=== PATIENT | male | born 1975 | race Caucasian/White ===

== ENCOUNTER 2017-04-09 22:32 | Emergency (ER) | payer BC, MEDICAID, OTHER ==
[2017-04-09] MEDS ORDERED: HYDROmorphone 1 MG/ML Syringe IVPUSH ONE (22:37)
--- NOTE | 2017-04-09 22:52 | EDM.PDOC ---
ED HPI GENERAL MEDICAL PROBLEM - General Chief Complaint: Upper Extremity Injury/Pain Stated Complaint: BROKE ARM FELL OFF LADDER Time Seen by Provider: 04/09/17 22:36 Source of Information: Reports: Patient, RN Notes Reviewed History Limitations: Reports: No Limitations - History of Present Illness INITIAL COMMENTS - FREE TEXT/NARRATIVE: 41-year-old gentleman presents emergency department day complaint of right wrist pain, this happened just prior to arrival he fell from ladder estimates 5 feet fall on outstretched hand he is experiencing significant pain in the right wrist area denies any loss of consciousness or head trauma Right Lower Arm Pain Score (Numeric/FACES): 10 - Related Data Allergies Allergy/AdvReac Type Severity Reaction Status Date / Time No Known Allergies Allergy Verified 04/09/17 22:39 Home Meds: Home Meds NK [No Known Home Meds] 04/09/17 [History] Past Medical History - Past Health History Medical/Surgical History: Denies Medical/Surgical History Social & Family History - Tobacco Use Smoking Status *Q: Current Some Day Smoker Review of Systems - Review of Systems Review Of Systems: See Below Constitutional: Reports: No Symptoms Respiratory: Reports: No Symptoms Cardiovascular: Reports: No Symptoms GI/Abdominal: Reports: No Symptoms Musculoskeletal: Reports: Joint Pain (Right wrist) ED EXAM, GENERAL - Physical Exam Exam: See Below Free Text/Narrative:: Examination of the right upper extremity there is no tenderness at the shoulder there is no tenderness at the elbow he does have a deformity at the wrist which is appreciated there is no erythema or edema he is exquisitely tender at the wrist on the medial aspect full range of motion all digits radial pulse +2 Exam Limited By: No Limitations General Appearance: Alert, WD/WN, No Apparent Distress ED TRAUMA EXTREMITY PROCEDURES - Splinting Right Upper Extremity Pre-Procedure NV Status: Normal Post-Procedure NV Status: Normal Splint Material: Fiberglass Splint Design: Posterior Applied & Form Fitted By: Provider Provider Post-Splint Application NV Check: NV Status Normal, Good Position Complications: No Course - Vital Signs Last Recorded V/S: Last Vital Signs Temp 98.2 F 04/09/17 22:38 Pulse 85 04/09/17 22:38 Resp 18 04/09/17 22:38 BP 111/80 04/09/17 22:38 Pulse Ox 100 04/09/17 22:38 - Orders/Labs/Meds Orders: Active Orders 24 hr Category Date Time Status Wrist Comp Min 3V Rt [CR] Stat Exams 04/09/17 22:59 Taken Meds: Medications Discontinued Medications Generic Name Dose Route Start Last Admin Trade Name Carol Ann PRN Reason Stop Dose Admin Fentanyl 100 mcg 04/09/17 23:33 04/09/17 23:43 Sublimaze IM 04/09/17 23:34 100 mcg ONETIME ONE Administration Hydromorphone HCl 1 mg 04/09/17 22:37 04/09/17 22:49 Dilaudid IVPUSH 04/09/17 22:38 1 mg ONETIME ONE Administration Departure - Departure Time of Disposition: 00:10 Disposition: Home, Self-Care 01 Condition: Good Clinical Impression: Closed traumatic nondisplaced fracture of distal end of right radius Qualifiers: Encounter type: initial encounter Qualified Code(s): S52.501A - Unspecified fracture of the lower end of right radius, initial encounter for closed fracture - Discharge Information Forms: ED Department Discharge Additional Instructions: Use hydrocodone as needed for pain control, please remain in splint until reevaluated by orthopedics they will call you next week for an appointment time - My Orders Last 24 Hours: My Active Orders 04/09/17 22:59 Wrist Comp Min 3V Rt [CR] Stat - Assessment/Plan Last 24 Hours: My Active Orders 04/09/17 22:59 Wrist Comp Min 3V Rt [CR] Stat Plan: Assessment Acuity = acute Site and laterality = distal closed nondisplaced fracture radius right side Etiology = secondary to a fall on outstretched hand Manifestations = pain Location of injury = Home Lab values = x-ray describes fracture above official read radiology is pending Plan He was placed in a posterior splint plan is to follow-up with orthopedics next week total #20 hydrocodone return for pain Patient was in agreement with the plan all questions were answered, they were instructed to return to the emergency department or call for worsening symptoms. This note was dictated using [employer] voice recognition software please call with any questions.
[2017-04-09] MEDS ORDERED: fentaNYL 100 MCG/2 ML SDV IM ONE (23:33)
[2017-04-10 00:14] VITALS: BP 121/60
--- NOTE | 2017-04-12 09:09 | CR ---
Wrist Comp Min 3V Rt INDICATION: foosh, pain FINDINGS: Acute, minimally displaced, intra-articular fracture through the ulnar aspect of the dista l radius. Benign bone island distal radius. Soft tissue swelling. Exam otherwise unremarkable.
== END 2017-04-10 00:29 | disposition home or self-care (01) ==
LOC: JP.ED 22:32
DX: S52.501A Unspecified fracture of the lower end of right radius, initial encounter for closed fracture (principal); F17.210 Nicotine dependence, cigarettes, uncomplicated; W11.XXXA Fall on and from ladder, initial encounter
CPT/HCPCS: 29125; 73110; 96372; 96374; 99283; J1170; J3010; 29105